=== PATIENT | female | born 1955 | race Caucasian/White ===

== ENCOUNTER 2017-10-17 11:43 | Emergency (ER) | payer BC, OTHER ==
[~2017-10-17] VITALS: Ht 170.2 cm; Wt 59.9 kg
[2017-10-17] MEDS ORDERED: ZOLOFT100 MG PO (11:56)
[2017-10-17] MEDS ORDERED: TESSALON PERLE100 MG PO (13:38)
[2017-10-17] MEDS ORDERED: VENTOLIN HFA 1818 GM INH (13:38)
[2017-10-17] MEDS ORDERED: FLONASE 0.05%50 MCG NASAL (13:38)
[2017-10-17] MEDS ORDERED: ZPAK PO (13:38)
[2017-10-17 14:00] VITALS: BP 135/84
== END 2017-10-17 14:01 | disposition home or self-care (01) ==
LOC: ER 11:43
DX: J18.9 Pneumonia, unspecified organism (principal); J98.01 Acute bronchospasm; J32.9 Chronic sinusitis, unspecified; Z96.653 Presence of artificial knee joint, bilateral